=== PATIENT | male | born 2000 | race Caucasian/White ===

== ENCOUNTER 2021-03-07 02:01 | Observation (INO) ==
[2021-03-07] MEDS ORDERED: Ketorolac 30 MG/ML VIAL IVP PRN ×2 (08:13→19:36)
[2021-03-07] MEDS ORDERED: Ondansetron 4 MG/2 ML VIAL IVP PRN ×3 (08:13→19:36)
[2021-03-07] MEDS ORDERED: Melatonin 3 MG TABLET PO PRN ×2 (08:13→19:36)
[2021-03-07] MEDS ORDERED: Naloxone 0.4 MG/ML INJ IVP PRN ×2 (08:13→19:36)
[2021-03-07] MEDS ORDERED: 0.9 % Sodium Chloride 1,000 ML IVC SCH (08:15)
[2021-03-07 10:55] LABS: Hematocrit 45.6 % (37.5-50.1); Hemoglobin 15.9 g/dL (12.9-16.9); Mean Corpuscular HGB Conc 34.9 g/dL (31.6-35.5); Mean Corpuscular Hemoglobin 28.3 pg (28.0-33.3); Mean Corpuscular Volume 81.1 fL (83.0-100.0); Mean Platelet Volume 10.1 fL (9.4-12.4); Platelet Count 197 K/mcL (140-400); Red Blood Count 5.62 M/mcL (4.19-5.50); Red Cell Distribution Width 12.9 % (11.5-14.5); White Blood Count 9.5 K/mcL (4.3-11.1)
[2021-03-07 11:14] LABS: BUN/Creatinine Ratio 10 (6-26); Blood Urea Nitrogen 17 mg/dL (6-20); Carbon Dioxide 24 mEq/L (23-29); Chloride 109 mEq/L (98-107); Glucose 87 mg/dL (70-105); Osmolality,Calculated 291 (280-300); Phosphorous 3.2 mg/dL (2.7-4.5); Potassium 4.1 mEq/L (3.5-5.1); Sodium 140 mEq/L (136-145); eGFR For African Americans > 60 (> 60); eGFR For Non-African Americans 52 (> 60)
[2021-03-07] MEDS ORDERED: Lidocaine -MPF 2% 2 ML VIAL ONE ×3 (15:15→17:41)
[2021-03-07] MEDS ORDERED: Ondansetron 4 MG/2 ML VIAL ONE (15:15)
[2021-03-07] MEDS ORDERED: *HR* FentaNYL (PF) 100 MCG/2 ML VIAL ONE ×2 (15:16→17:41)
[2021-03-07] MEDS ORDERED: *HR* Propofol 200 MG/20 ML VIAL IVP ONE ×2 (15:16→17:41)
[2021-03-07] MEDS ORDERED: *HR* Midazolam HCl 2 MG/2 ML VIAL ONE (15:16)
[2021-03-07] MEDS ORDERED: *HR* HYDROmorphone PF 0.5 MG/0.5 ML SYRINGE IVP PRN (15:35)
[2021-03-07] MEDS ORDERED: *HR* FentaNYL (PF) 100 MCG/2 ML VIAL IVP PRN (15:35)
[2021-03-07] MEDS ORDERED: Isovue-300 50ML VIAL ONE (17:19)
[2021-03-08 02:53] LABS: BUN/Creatinine Ratio 13 (6-26); Blood Urea Nitrogen 19 mg/dL (6-20); Calcium 9.2 mg/dL (8.6-10.3); Carbon Dioxide 21 mEq/L (23-29); Chloride 107 mEq/L (98-107); Glucose 131 mg/dL (70-105); Osmolality,Calculated 290 (280-300); Potassium 4.1 mEq/L (3.5-5.1); Sodium 138 mEq/L (136-145); eGFR For African Americans > 60 (> 60); eGFR For Non-African Americans > 60 (> 60)
[2021-03-08 07:25] VITALS: BP 116/61; PULSE 86; TEMP 98.1; O2SAT 97
[2021-03-08 08:39] LABS: BUN/Creatinine Ratio 15 (6-26); Blood Urea Nitrogen 19 mg/dL (6-20); Calcium 9.5 mg/dL (8.6-10.3); Carbon Dioxide 23 mEq/L (23-29); Chloride 106 mEq/L (98-107); Glucose 134 mg/dL (70-105); Osmolality,Calculated 290 (280-300); Potassium 4.3 mEq/L (3.5-5.1); Sodium 138 mEq/L (136-145); eGFR For African Americans > 60 (> 60); eGFR For Non-African Americans > 60 (> 60)
== END 2021-03-08 10:15 | disposition home or self-care (01) ==
LOC: 3BNU → SUATTDRO 10:16
PROVIDERS: ADMIT Internal Medicine; ATTEND Family Medicine